=== PATIENT | male | born 1965 | race Caucasian/White ===

== ENCOUNTER 2017-10-05 13:24 | Emergency (ER) | payer MEDICARE ==
[~2017-10-05 13:24] MED LIST: Iopamidol 370 76% 100 ML VIAL ONE
[2017-10-05 14:07] LABS: #Basophils 0.1 thou/uL (0.0-0.2); #Eosinphils 0.1 thou/uL (0.0-0.7); #Lymphocytes 1.7 thou/uL (1.20-3.40); #Monocytes 0.8 thou/uL (0.11-0.59); %Basophils 0.5 % (0.0-1.0); %Eosinophils 0.5 % (0.0-10.0); %Lymphocytes 12.6 % (21.0-51.0); %Monocytes 5.8 % (0.0-10.0); %Neutrophils 80.7 % (42.0-75.0); Hemoglobin 13.3 g/dL (14.0-18.0); Mean Corpuscular HGB CONC 34.7 g/dL (32.0-36.0); Mean Corpuscular Hemoglobin 30.3 pg (27.0-31.0); Mean Corpuscular Volume 87.3 fl (80.0-94.0); Mean Platelet Volume 6.2 fL (7.4-10.4); Platelet Count 266 thou/uL (130-400); RBC Distribution Width 12.1 % (11.5-14.5); Red Blood Cell (RBC) Count 4.39 mill/uL (4.70-6.10); White Blood Cell (WBC) Count 13.7 thou/uL (4.8-10.8)
[2017-10-05 14:18] LABS: Anion Gap 13 mmol/L (10-20); BUN (Urea Nitrogen) 12 mg/dL (8.9-20.6); Calc. Creatinine Clearance 0 mL/min (70-130); Calcium 8.8 mg/dL (7.8-10.44); Carbon Dioxide 27 mmol/L (22-29); Chloride 101 mmol/L (98-107); Estimated GFR-MDRD 69; Glucose 168 mg/dL (70-105); Sodium 137 mmol/L (136-145)
--- NOTE | 2017-10-05 14:56 | CT ---
SOFT TISSUE NECK CT WITH CONTRAST: Date; 10/05/17 No prior comparison. CLINICAL HISTORY: Pain. Edema. FINDINGS: There is a markedly enlarged left sternocleidomastoid muscle which is heterogeneous with overlying so ft tissue edema. This indicates myositis. At the anterior and medial aspect of the left sternocleidom astoid muscle, at the level of the hyoid bone, there is an intramuscular complex hypodensity with per ipheral irregular hyperdensity likely relating to an enhancing wall with internal septation also pres ent. Axial dimension in an AP orientation is 3.6 cm x transverse diameter of approximately 2.5 cm. Th ere are adjacent hyperdense slightly heterogeneous lymph nodes indicating a probable reactive adenopa thy, although underlying neoplastic process is not entirely excluded. There is mass effect with resul tant attenuation and complete effacement of the traversing left internal jugular vein. Thyroid gland is unremarkable. No intrinsic pathology of the submandibular glands or either parotid gland. Heteroge neity of each palatine tonsil is present, more notable on the left. No mass effect at the level of th e glottis. Epiglottis is of normal caliber. Preepiglottic space is maintained. IMPRESSION: Findings most consistent with intramuscular abscess centered at the anteromedial and left sternocleid omastoid muscle with associated myositis and marked enlargement/heterogeneity of the left sternocleid omastoid muscle. There is overlying cellulitis, as well as edema involving the deep space left neck s oft tissues. Prominent adjacent left neck adenopathy is present as discussed above. Heterogeneity of each palatine tonsil is present, more notable on the left. Recommend otolaryngology consultation for further evaluation. Note is made that the possibility of necrotic malignancy is not excluded on the b asis of this exam, and therefore, imaging follow-up is recommended. POS: [facility]
== END 2017-10-05 14:58 | disposition home or self-care (01) ==
LOC: SCSER 13:24
DX: L02.11 Cutaneous abscess of neck (principal); F17.210 Nicotine dependence, cigarettes, uncomplicated; F17.290 Nicotine dependence, other tobacco product, uncomplicated
CPT/HCPCS: 70491; 80048; 85025; 87070; 87077; 87186; 87205

== ENCOUNTER 2017-10-08 11:13 | Day surgery (SDC) | payer MEDICARE ==
[2017-10-08] MEDS ORDERED: Fentanyl 100 MCG/2 ML VIAL ONE ×2 (12:37→13:44)
[2017-10-08] MEDS ORDERED: Lidocaine 1% w/Epinephrine 1:200K 30 ML VIAL ONE (12:46)
[2017-10-08] MEDS ORDERED: Dexamethasone 20 MG/5 ML VIAL ONE ×2 (17:04)
[2017-10-08] MEDS ORDERED: Ondansetron HCl/PF 4 MG/2 ML Vial ONE (17:04)
[2017-10-08] MEDS ORDERED: Lidocaine 1% PF 5 ML VIAL ONE (17:04)
[2017-10-08] MEDS ORDERED: PROPOFOL 200 MG/20 ML VIAL ONE (17:04)
--- NOTE | 2017-10-08 21:01 | EKG ---
Test Reason : PREOP Blood Pressure : / mmHG Vent. Rate : 070 BPM Atrial Rate : 070 BPM P-R Int : 126 ms QRS Dur : 096 ms QT Int : 400 ms P-R-T Axes : 063 -42 048 degrees QTc Int : 432 ms Normal sinus rhythm Left axis deviation Abnormal ECG No previous ECGs available Confirmed by MARICARMEN DELVALLE ([id number]) on 10/08/2017 9:01:30 PM Referred By: RUBY Confirmed By:MARICARMEN DELVALLE
--- NOTE | 2017-10-09 14:18 | OP ---
PREOPERATIVE DIAGNOSES: 1. Left neck mass. 2. Retropharyngeal abscess. 3. Left suspicious tonsil lesion. PROCEDURE PERFORMED: 1. Incision and drainage of left neck abscess: 2. Direct laryngoscopy with biopsy of left tonsil. FINDINGS: The patient was found to have necrotic/purulent appearing material in the left neck, which was sent for culture and sensitivity and also for pathology. Incidentally, he also was found to hav e firm quality on his left tonsil, which prompted a biopsy and specimen sent for permanent histologic evaluation. PROCEDURE IN DETAIL: After consent was obtained, the patient was identified, brought to the operatin g room and placed on the table in supine position. General endotracheal anesthesia was obtained. Th e patient was positioned for laryngoscopy. The patient underwent systematic laryngoscopy of the oral cavity, oropharynx, hypopharynx, larynx, and esophageal the only abnormality noted to be some subtle firmness in the left tonsil. A biopsy was obtained and sent for permanent histologic evaluation. W e then prepped and draped the patient and turned our attention to the neck in the area along the natu ral skin crease 2 fingerbreadths below the angle of mandible was infiltrated with 1% lidocaine with 1 :100,000 epinephrine. An incision was then made through the skin and subcutaneous tissues the area a nterior to the sternocleidomastoid and dissection was then carried down towards the carotid sheath an d once the retropharyngeal area was encountered/appeared extravasated from the wound. This was then copiously irrigated and a specimen was collected for culture and sensitivity. A drain was then place d in the deep aspect of the wound and sutures secured to the skin. The skin was reapproximated with 2 loose sutures, which kept the skin edges of that position. Sterile dressing was applied. The tamika ent was awakened and taken to recovery in stable condition prior to discharge home.
[2017-10-12 10:23] LABS: Fungus Stain Final report (.)
== END 2017-10-08 15:35 | disposition home or self-care (01) ==
LOC: SDC 11:13
PROVIDERS: ATTEND Specialist
PROC: 0CBM8ZX Excision of Pharynx, Via Natural or Artificial Opening Endoscopic, Diagnostic (ICD-10-PCS; principal; 2017-10-08)
PROC: 0J950ZZ Drainage of Left Neck Subcutaneous Tissue and Fascia, Open Approach (ICD-10-PCS; 2017-10-08)
DX: C09.9 Malignant neoplasm of tonsil, unspecified (principal); R22.1 Localized swelling, mass and lump, neck; F32.9 Major depressive disorder, single episode, unspecified; F17.210 Nicotine dependence, cigarettes, uncomplicated; Z98.890 Other specified postprocedural states
CPT/HCPCS: 87070; 87102; 87205; 87206; 88305; 88341; 88342; 88360; 93005; 93010; 96374; J1100; J2001; J2405; J2704; J3010

== ENCOUNTER 2017-10-25 13:59 | Outpatient (CLI) | payer MEDICARE ==
--- NOTE | 2017-10-26 09:11 | PET ---
RADIONUCLIDE PET SCAN WITH CT ATTENUATION CORRECTION IMAGING: HISTORY: Tonsillar cancer. Initial staging. FINDINGS: Physiologic uptake is present throughout the enteric system and along each urinary tract. Muscular up take is associated with the muscles of phonation, the neck muscles, and the gluteal muscles. A focus of increased uptake at the left tonsil shows a maximum SUV of 5.0. The necrotic adenopathy along the left jugular chain shows a maximum SUV of 4.5. No distant foci of abnormal uptake are present. Nondiagnostic CT attenuation correction images show tiny calcifications associated with nondilated ca lices of each kidney. There is calcification within the arterial structures. Fat extends through the right inguinal canal and into the right side of the scrotum. IMPRESSION: 1. 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 No evidence o f distant metastases. 2. Tiny, nonobstructing bilateral renal calculi. 3. Atherosclerosis. 4. Fat-containing right inguinal hernia. POS: [facility]
== END 2017-10-25 14:00 | disposition home or self-care (01) ==
LOC: PET 13:59
PROVIDERS: ATTEND Internal Medicine Medical Oncology
DX: C09.9 Malignant neoplasm of tonsil, unspecified (principal); I70.90 Unspecified atherosclerosis; K40.90 Unilateral inguinal hernia, without obstruction or gangrene, not specified as recurrent
CPT/HCPCS: 78815; A9552

== ENCOUNTER 2017-12-20 12:32 | Day surgery (SDC) | payer MEDICARE ==
[2017-12-20] MEDS ORDERED: Sodium Chloride 0.9% 500 ML IVPB SCH ×2 (12:45)
[2017-12-20] MEDS ORDERED: PALONOSETRON HCL 0.05 MG/ML 5 ML VIAL IVP SCH (13:00)
[2017-12-20] MEDS ORDERED: MANNITOL IV SCH (13:00)
[2017-12-20] MEDS ORDERED: SODIUM CHLORIDE 0.9% IV SCH (13:00)
[2017-12-20] MEDS ORDERED: CISPLATIN IV SCH (13:00)
[2017-12-20] MEDS ORDERED: Dexamethasone 10 MG/ML VIAL SLOW IVP SCH (13:00)
[2017-12-20] MEDS ORDERED: Sodium Chloride 0.9% 20 ML ONE (15:11)
== END 2017-12-20 17:50 | disposition home or self-care (01) ==
LOC: ONC/OP 12:32
PROVIDERS: ATTEND Internal Medicine Medical Oncology
DX: Z51.11 Encounter for antineoplastic chemotherapy (principal); C09.9 Malignant neoplasm of tonsil, unspecified; C77.0 Secondary and unspecified malignant neoplasm of lymph nodes of head, face and neck; I10 Essential (primary) hypertension; F32.9 Major depressive disorder, single episode, unspecified; M51.36 Other intervertebral disc degeneration, lumbar region; F17.210 Nicotine dependence, cigarettes, uncomplicated
CPT/HCPCS: 77386; 96361; 96367; 96375; 96413; A4216; J1100; J1453; J2150; J2469; J3480; J7050; J9060

== ENCOUNTER 2017-12-27 11:53 | Day surgery (SDC) | payer MEDICARE ==
[2017-12-27] MEDS ORDERED: Dexamethasone 10 MG/ML VIAL SLOW IVP SCH (12:15)
[2017-12-27] MEDS ORDERED: CISPLATIN IV SCH (12:15)
[2017-12-27] MEDS ORDERED: PALONOSETRON HCL 0.05 MG/ML 5 ML VIAL IVP SCH (12:15)
[2017-12-27] MEDS ORDERED: MANNITOL IV SCH (12:15)
[2017-12-27] MEDS ORDERED: Sodium Chloride 0.9% 500 ML IVPB SCH (12:15)
[2017-12-27] MEDS ORDERED: SODIUM CHLORIDE 0.9% IV SCH (12:15)
[2017-12-27] MEDS ORDERED: Sodium Chloride 0.9% 40 ML ONE (12:23)
[2017-12-27 17:28] VITALS: BP 145/98; TEMP 98.2
== END 2017-12-27 17:49 | disposition home or self-care (01) ==
LOC: ONC/OP 11:53
PROVIDERS: ATTEND Internal Medicine Medical Oncology
DX: Z51.11 Encounter for antineoplastic chemotherapy (principal); C09.9 Malignant neoplasm of tonsil, unspecified; C77.0 Secondary and unspecified malignant neoplasm of lymph nodes of head, face and neck; I10 Essential (primary) hypertension; F32.9 Major depressive disorder, single episode, unspecified; M51.36 Other intervertebral disc degeneration, lumbar region; N52.9 Male erectile dysfunction, unspecified; F17.210 Nicotine dependence, cigarettes, uncomplicated
CPT/HCPCS: 36415; 77300; 77301; 77336; 77338; 77386; 77417; 80053; 82248; 83615; 83735; 84100; 84550; 96361; 96367; 96375; 96413; A4216; J1100; J1453; J2150; J2469; J3480; J7050; J9060

== ENCOUNTER 2018-01-01 11:44 | Day surgery (SDC) | payer MEDICARE ==
[2018-01-01] MEDS ORDERED: Sodium Chloride 0.9% 30 ML ONE (12:04)
[2018-01-01 12:47] VITALS: BP 118/75; TEMP 98
[2018-01-01 13:54] LABS: #Eosinphils 0.2 thou/uL (0.0-0.7); #Lymphocytes 0.7 thou/uL (1.20-3.40); #Monocytes 0.7 thou/uL (0.11-0.59); #Neutrophils 6.7 thou/uL (1.40-6.50); %Basophils 0.3 % (0.0-1.0); %Lymphocytes 7.9 % (21.0-51.0); %Neutrophils 81.8 % (42.0-75.0); Hemoglobin 14.9 g/dL (14.0-18.0); Mean Corpuscular HGB CONC 33.6 g/dL (32.0-36.0); Mean Corpuscular Hemoglobin 30.5 pg (27.0-31.0); Mean Corpuscular Volume 90.8 fL (78.0-98.0); Mean Platelet Volume 5.9 fL (7.4-10.4); Platelet Count 245 thou/uL (130-400); Red Blood Cell (RBC) Count 4.88 mill/uL (4.70-6.10); White Blood Cell (WBC) Count 8.2 thou/uL (4.8-10.8)
[2018-01-01 14:15] LABS: ALT (SGPT) 31 U/L (8-55); AST (SGOT) 28 U/L (5-34); Alkaline Phosphatase 101 U/L (40-150); Anion Gap 13 mmol/L (10-20); BUN (Urea Nitrogen) 22 mg/dL (8.4-25.7); Bilirubin, Total 0.5 mg/dL (0.2-1.2); Calc. Creatinine Clearance 0 mL/min (70-130); Calcium 9.4 mg/dL (7.8-10.44); Carbon Dioxide 29 mmol/L (22-29); Chloride 98 mmol/L (98-107); Estimated GFR-MDRD 61; Globulin 3.4 g/dL (2.4-3.5); Glucose 133 mg/dL (70-105); Potassium 5.1 mmol/L (3.5-5.1); Protein, Total 7.4 g/dL (6.0-8.3); Sodium 135 mmol/L (136-145)
[2018-01-01] MEDS ORDERED: Sodium Chloride 0.9% 1,000 ML IV SCH (15:15)
== END 2018-01-01 16:08 | disposition home or self-care (01) ==
LOC: ONC/OP 11:44
PROVIDERS: ATTEND Internal Medicine Medical Oncology
DX: E86.0 Dehydration (principal)
CPT/HCPCS: 36415; 80053; 85025; 96360; A4216

== ENCOUNTER 2018-01-03 12:43 | Day surgery (SDC) | payer MEDICARE ==
[2018-01-03] MEDS ORDERED: Sodium Chloride 0.9% 30 ML ONE (12:49)
[2018-01-03] MEDS ORDERED: Sodium Chloride 0.9% 500 ML IVPB SCH ×2 (13:00)
[2018-01-03] MEDS ORDERED: MANNITOL IV SCH (13:00)
[2018-01-03] MEDS ORDERED: CISPLATIN IV SCH (13:00)
[2018-01-03] MEDS ORDERED: SODIUM CHLORIDE 0.9% IV SCH (13:00)
[2018-01-03] MEDS ORDERED: PALONOSETRON HCL 0.05 MG/ML 5 ML VIAL IVP SCH (13:15)
[2018-01-03] MEDS ORDERED: Dexamethasone 10 MG/ML VIAL SLOW IVP SCH (13:15)
[2018-01-03 13:44] VITALS: BP 130/74; TEMP 97.7
== END 2018-01-03 17:16 | disposition home or self-care (01) ==
LOC: ONC/OP 12:43
PROVIDERS: ATTEND Internal Medicine Medical Oncology
DX: Z51.11 Encounter for antineoplastic chemotherapy (principal); C09.9 Malignant neoplasm of tonsil, unspecified; R97.8 Other abnormal tumor markers
CPT/HCPCS: 36415; 77386; 77417; 80053; 82248; 83615; 83735; 84100; 84550; 96367; 96375; 96413; A4216; J1100; J1453; J2150; J2469; J3480; J7050; J9060

== ENCOUNTER 2018-01-10 12:52 | Day surgery (SDC) | payer MEDICARE ==
[2018-01-10] MEDS ORDERED: PALONOSETRON HCL 0.05 MG/ML 5 ML VIAL IVP SCH (14:00)
[2018-01-10] MEDS ORDERED: MANNITOL IV SCH (14:00)
[2018-01-10] MEDS ORDERED: Dexamethasone 10 MG/ML VIAL SLOW IVP SCH (14:00)
[2018-01-10] MEDS ORDERED: SODIUM CHLORIDE 0.9% IV SCH (14:00)
[2018-01-10] MEDS ORDERED: CISPLATIN IV SCH (14:00)
[2018-01-10 14:28] VITALS: BP 128/81; TEMP 98.7
== END 2018-01-10 17:53 | disposition home or self-care (01) ==
LOC: ONC/OP 12:52
PROVIDERS: ATTEND Internal Medicine Medical Oncology
DX: Z51.11 Encounter for antineoplastic chemotherapy (principal); C09.9 Malignant neoplasm of tonsil, unspecified; R97.8 Other abnormal tumor markers
CPT/HCPCS: 96361; 96367; 96375; 96413; J1100; J1453; J2150; J2469; J7050; J9060

== ENCOUNTER 2018-01-17 13:45 | Day surgery (SDC) | payer MEDICARE ==
[2018-01-17] MEDS ORDERED: PALONOSETRON HCL 0.05 MG/ML 5 ML VIAL IVP SCH (14:00)
[2018-01-17] MEDS ORDERED: Dexamethasone 10 MG/ML VIAL SLOW IVP SCH (14:00)
[2018-01-17] MEDS ORDERED: Sodium Chloride 0.9% 40 ML ONE (14:03)
[2018-01-17 14:14] VITALS: BP 116/71; TEMP 98.6
[2018-01-17] MEDS ORDERED: SODIUM CHLORIDE 0.9% IV SCH (14:15)
[2018-01-17] MEDS ORDERED: CISPLATIN IV SCH (14:15)
[2018-01-17] MEDS ORDERED: MANNITOL IV SCH (14:15)
== END 2018-01-17 18:42 | disposition home or self-care (01) ==
LOC: ONC/OP 13:45
PROVIDERS: ATTEND Internal Medicine Medical Oncology
DX: Z51.11 Encounter for antineoplastic chemotherapy (principal); C09.9 Malignant neoplasm of tonsil, unspecified; C77.0 Secondary and unspecified malignant neoplasm of lymph nodes of head, face and neck; R97.8 Other abnormal tumor markers; I10 Essential (primary) hypertension; F32.9 Major depressive disorder, single episode, unspecified; M47.816 Spondylosis without myelopathy or radiculopathy, lumbar region; F17.210 Nicotine dependence, cigarettes, uncomplicated
CPT/HCPCS: 36415; 77386; 80053; 82248; 83615; 83735; 84100; 84550; 96361; 96367; 96375; 96413; 96415; A4216; J1100; J1453; J2150; J2469; J3480; J7050; J9060

== ENCOUNTER → 2018-01-24 | Day surgery (SDC) | payer MEDICARE ==
[~2018-01-24] MED LIST changes: +CISPLATIN IV SCH; +Dexamethasone 10 MG in Sodium Chloride 0.9% 50 ML IVPB SCH; +Fosaprepitant Dimeglumine 150 MG in Sodium Chloride 0.9% 250 ML 150 ML IVPB SCH; -Iopamidol 370 76% 100 ML VIAL ONE; +MANNITOL IV SCH; +Palonosetron HCl 0.25 MG in Sodium Chloride 0.9% 50 ML IVPB SCH; +SODIUM CHLORIDE 0.9% IV SCH; +Sodium Chloride 0.9% 30 ML ONE; +Sodium Chloride 0.9% 500 ML IVPB SCH
[2018-01-24 14:25] VITALS: BP 138/73; TEMP 98.7
== END ==
LOC: ONC/OP 13:24
PROVIDERS: ATTEND Internal Medicine Medical Oncology
DX: Z51.11 Encounter for antineoplastic chemotherapy (principal); C09.9 Malignant neoplasm of tonsil, unspecified; R97.8 Other abnormal tumor markers
CPT/HCPCS: 36415; 77336; 77386; 77417; 80053; 82248; 83615; 83735; 84100; 84550; 96361; 96367; 96375; 96413; A4216; J1100; J1453; J2150; J2469; J3480; J7050; J9060

== ENCOUNTER 2018-03-13 10:46 | Outpatient (CLI) | payer MEDICARE ==
[~2018-03-13 10:46] MED LIST changes: -CISPLATIN IV SCH; -Dexamethasone 10 MG in Sodium Chloride 0.9% 50 ML IVPB SCH; -Fosaprepitant Dimeglumine 150 MG in Sodium Chloride 0.9% 250 ML 150 ML IVPB SCH; +Iopamidol 370 76% 100 ML VIAL ONE; -MANNITOL IV SCH; -Palonosetron HCl 0.25 MG in Sodium Chloride 0.9% 50 ML IVPB SCH; -SODIUM CHLORIDE 0.9% IV SCH; -Sodium Chloride 0.9% 30 ML ONE; -Sodium Chloride 0.9% 500 ML IVPB SCH
--- NOTE | 2018-03-13 12:43 | CT ---
SOFT TISSUE NECK CT WITH CONTRAST: HISTORY: Left tonsillar cancer with left neck lymphadenopathy. Status post radiation therapy and chemotherapy . Exam is requested for restaging. COMPARISON: 10/05/2017 FINDINGS: Limited evaluation due to motion degradation at the level of the supraglottic and glottic larynx. The visualized brain parenchyma is unremarkable. Adequate aeration of the visualized sinuses and mas toid air cells. The aerodigestive tract is patent. No obvious mass in the oral cavity. Evaluation is limited by den bushra amalgam artifact. Midline fatty raphe of the tongue does appear to be preserved. No obvious mas s in the left or right palatine tonsil. The lingual tonsils are unremarkable. The epiglottis has a normal caliber. Pre-epiglottic fat is preserved. Symmetric attenuation of the sternocleidomastoid muscles. Symmetric attenuation of the residual paro tid glands. Symmetric attenuation of the submandibular glands. The thyroid gland is unremarkable. With regard to the right neck, no evidence of lymphadenopathy. With regard to the left neck, there i s an enlarged left level II lymph node, measuring 1.1 x 0.8 cm. Previously, this likely represented a lymph node measuring 1.8 x 1.5 cm. There appears to be a partially necrotic left level II lymph no de, currently measuring 1.8 x 1.2 cm. This likely represented the previously cystic lesion noted in the left neck, which measured 3.7 x 2 cm. Previously noted edematous change involving the left snell ocleidomastoid muscle and left neck soft tissue has significant decreased. Varying degrees of central canal stenosis and foraminal narrowing on the basis of degenerative change . The upper mediastinum is unremarkable. There is a 6 mm nodule in the left upper lobe. IMPRESSION: 1. Findings suggesting a significant response to therapy. Previously noted necrotic lymph node is l ess evident and may represent a significantly decreased in size left level II lymph node. Additional ly, the inflammatory changes of the left neck have significantly reduced. 2. There does appear to be an indeterminate nodule in the left upper lobe. Dedicated chest CT may b e beneficial to assess for intrathoracic malignancy. Correlation made with a PET scan from 8, which demonstrated this nodule. At that time, the nodule also measured 5 mm. No reported fluorod eoxyglucose avidity. Of note, the size of the nodule is small and is below the imaging threshold for PET imaging. POS: [facility]
== END 2018-03-13 10:47 | disposition home or self-care (01) ==
LOC: SCSCT 10:46
PROVIDERS: ATTEND Radiology Radiation Oncology
DX: C09.9 Malignant neoplasm of tonsil, unspecified (principal); R59.0 Localized enlarged lymph nodes; R91.1 Solitary pulmonary nodule; Z92.21 Personal history of antineoplastic chemotherapy; Z92.3 Personal history of irradiation
CPT/HCPCS: 70491

== ENCOUNTER 2018-06-04 11:58 | Outpatient (CLI) | payer MEDICARE ==
--- NOTE | 2018-06-05 09:54 | PET ---
PET CT FROM APEX OF SKULL TO MID THIGH: COMPARISON: 03/13/[address] neck and PET CT dated 10/25/17. HISTORY: Squamous cell tonsillar cancer. Status post radiation therapy and chemotherapy. TECHNIQUE: A PET CT was performed from the apex of the skull through the mid thigh after administration of 10.7 mCi [id number]. FINDINGS: The previously seen areas of hypermetabolic activity in the left tonsil and left neck are no longer p resent. No suspicious hypermetabolic activity is seen in the neck. There is increased uptake in the p araspinal musculature of the neck which likely represents either movement during the examination or b rown fat. No suspicious areas of hypermetabolic activity are seen in the chest, abdomen, or pelvis. The 6.0 mm lung nodule mentioned on CT of the neck from 03/13/18 does not demonstrate hypermetabolic activity. H owever, this nodule is only 6.0 mm in size and likely below PET resolution. No suspicious areas of hypermetabolic activity are seen in the bones. Atherosclerotic calcifications are seen in the aorta. IMPRESSION: 1. Resolution of previously seen hypermetabolic activity in the left tonsil and left jugular lymph n odes. 2. Nonhypermetabolic left upper lobe pulmonary nodule. However, this nodule is only 6.0 mm and likel y below PET resolution. POS: [facility]
== END 2018-06-04 11:59 | disposition home or self-care (01) ==
LOC: PET 11:58
PROVIDERS: ATTEND Radiology Radiation Oncology
DX: C02.9 Malignant neoplasm of tongue, unspecified (principal); R91.1 Solitary pulmonary nodule; Z92.21 Personal history of antineoplastic chemotherapy
CPT/HCPCS: 78815; A9552